=== PATIENT | female | born 1980 | race Hispanic/Latino ===

== ENCOUNTER 2021-01-24 15:59 | Emergency (ER) | payer SELFPAY | END 2021-01-24 19:17 | LOC: ED 15:59 ==

== ENCOUNTER 2021-04-21 19:39 | Emergency (ER) | payer SELFPAY ==
[2021-04-21 20:05] VITALS: BP 110/68
[2021-04-21 20:47] LABS: Basophils # (Auto) 0.1 K/mm3 (0.0-0.1); Eosinophils # (Auto) 0.2 K/mm3 (0.0-0.4); Eosinophils % (Auto) 2.1 % (0.0-4.3); Hematocrit 37.1 % (30.3-42.9); Hemoglobin 12.4 gm/dl (10.1-14.3); Lymphocytes # (Auto) 2.8 K/mm3 (1.2-5.4); Lymphocytes % (Auto) 32.2 % (13.4-35.0); Mean Corpuscular HGB Conc 34 % (30-34); Mean Corpuscular Volume 93 fl (79-97); Monocytes # (Auto) 0.7 K/mm3 (0.0-0.8); Monocytes % (Auto) 7.6 % (0.0-7.3); Platelet Count 342 K/mm3 (140-440); Red Blood Count 3.97 M/mm3 (3.65-5.03); Red Cell Distribution Width 14.1 % (13.2-15.2)
[2021-04-21 21:12] LABS: Alanine Aminotransferase 37 units/L (7-56); Albumin 3.9 g/dL (3.9-5); BUN/Creatinine Ratio 9; Blood Urea Nitrogen 7 mg/dL (7-17); Calcium 8.9 mg/dL (8.4-10.2); Hemolysis Index 16
[2021-04-21 21:31] LABS: Bilirubin,Urine NEG (Negative); Blood,Urine LG (Negative); Color,Urine Yellow (Yellow); Mucus,Urine FEW /HPF; Protein,Urine <15 mg/dL mg/dL (Negative); Urobilinogen,Urine < 2.0 mg/dL (<2.0)
--- NOTE | 2021-04-21 21:47 | Emergency Department Report ---
ED General Adult HPI - General Chief complaint: Dyspnea/Respdistress Stated complaint: SWELLING ALL OVER BREATHING HEAVY Time Seen by Provider: 04/21/21 20:11 Source: patient Mode of arrival: Ambulatory Limitations: No Limitations - History of Present Illness Initial comments: Patient is a 41-year-old female presents emergency room with complaints of ab dominal swelling and pain that began 2 days ago. Patient states that she is also noticed swelling to her ankles. Patient denies ever having this in the past. She states that her abdomen feels tight. She states that she is a nondrinker. Patient states that she is also been feeling shortness of breath. She denies any fever, nausea, vomiting, diarrhea, cough, calf pain, chest pain, pleuritic pain. She states that she has a smoker. Past medical history of hyperthyroidism, asthma, bipolar. Allergy to penicillin. She states that she is currently on her menstrual cycle. - Related Data Allergies Allergy/AdvReac Type Severity Reaction Status Date / Time Penicillins Allergy Anaphylaxis Verified 01/24/21 18:47 ED Review of Systems ROS: Stated complaint: SWELLING ALL OVER BREATHING HEAVY Other details as noted in HPI Comment: All other systems reviewed and negative ED Past Medical Hx - Past Medical History Previous Medical History?: Yes Hx Psychiatric Treatment: Yes (manic bipolar) Hx Asthma: Yes Additional medical history: hyperthyroid - Surgical History Past Surgical History?: Yes Additional Surgical History: TL ED Physical Exam - General Limitations: No Limitations General appearance: alert, in no apparent distress - Head Head exam: Present: atraumatic, normocephalic - Eye Eye exam: Present: normal appearance - ENT ENT exam: Present: mucous membranes moist - Respiratory Respiratory exam: Present: normal lung sounds bilaterally. Absent: respiratory distress, wheezes, rales, rhonchi, stridor, chest wall tenderness, accessory muscle use, decreased breath sounds, prolonged expiratory - Cardiovascular Cardiovascular Exam: Present: regular rate, normal rhythm, normal heart sounds. Absent: systolic murmur, diastolic murmur, rubs, gallop - GI/Abdominal GI/Abdominal exam: Present: soft, distended (mildly ), tenderness (mildly), no rmal bowel sounds. Absent: guarding, rebound, rigid - Extremities Exam Extremities exam: Present: other (trace non pitting edema to the bilateral ankles, no calf ttp ) - Neurological Exam Neurological exam: Present: alert, oriented X3 - Psychiatric Psychiatric exam: Present: normal affect, normal mood - Skin Skin exam: Present: warm, dry, intact ED Course Vital Signs 04/21/21 20:04 Temperature 98.8 F Pulse Rate 85 Respiratory 18 Rate Blood Pressure 110/68 [Right] O2 Sat by Pulse 99 Oximetry ED Medical Decision Making - Lab Data Result diagrams: 04/21/21 20:27 04/21/21 20:27 Lab Results 04/21/21 04/21/21 04/21/21 Range/Units 20:27 20:27 20:27 WBC 8.7 (4.5-11.0) K/mm3 RBC 3.97 (3.65-5.03) M/mm3 Hgb 12.4 (10.1-14.3) gm/dl Hct 37.1 (30.3-42.9) % MCV 93 (79-97) fl MCH 31 (28-32) pg MCHC 34 (30-34) % RDW 14.1 (13.2-15.2) % Plt Count 342 (140-440) K/mm3 Lymph % (Auto) 32.2 (13.4-35.0) % Moody % (Auto) 7.6 H (0.0-7.3) % Eos % (Auto) 2.1 (0.0-4.3) % Baso % (Auto) 1.0 (0.0-1.8) % Lymph # (Auto) 2.8 (1.2-5.4) K/mm3 Moody # (Auto) 0.7 (0.0-0.8) K/mm3 Eos # (Auto) 0.2 (0.0-0.4) K/mm3 Baso # (Auto) 0.1 (0.0-0.1) K/mm3 Seg Neutrophils % 57.1 (40.0-70.0) % Seg Neutrophils # 5.0 (1.8-7.7) K/mm3 Sodium 140 (137-145) mmol/L Potassium 4.1 (3.6-5.0) mmol/L Chloride 104.0 (98-107) mmol/L Carbon Dioxide 21 L (22-30) mmol/L Anion Gap 19 mmol/L BUN 7 (7-17) mg/dL Creatinine 0.8 (0.6-1.2) mg/dL Estimated GFR > 60 ml/min BUN/Creatinine Ratio 9 % Glucose 91 (65-100) mg/dL Calcium 8.9 (8.4-10.2) mg/dL Total Bilirubin < 0.20 (0.1-1.2) mg/dL AST 25 (5-40) units/L ALT 37 (7-56) units/L Alkaline Phosphatase 84 (35-129) units/L Troponin T < 0.010 (0.00-0.029) ng/mL NT-Pro-B Natriuret Pep 169.8 (0-450) pg/mL Total Protein 6.8 (6.3-8.2) g/dL Albumin 3.9 (3.9-5) g/dL Albumin/Globulin Ratio 1.3 % HCG, Qual Negative (Negative) Urine Color (Yellow) Urine Turbidity (Clear) Urine pH (5.0-7.0) Ur Specific [place] (1.003-1.030) Urine Protein (Negative) mg/dL Urine Glucose (UA) (Negative) mg/dL Urine Ketones (Negative) mg/dL Urine Blood (Negative) Urine Nitrite (Negative) Urine Bilirubin (Negative) Urine Urobilinogen (<2.0) mg/dL Ur Leukocyte Esterase (Negative) Urine WBC (Auto) (0.0-6.0) /HPF Urine RBC (Auto) (0.0-6.0) /HPF U Epithel Cells (Auto) (0-13.0) /HPF Urine Mucus /HPF Urine Yeast (Budding) /HPF 04/21/21 Range/Units Unknown WBC (4.5-11.0) K/mm3 RBC (3.65-5.03) M/mm3 Hgb (10.1-14.3) gm/dl Hct (30.3-42.9) % MCV (79-97) fl MCH (28-32) pg MCHC (30-34) % RDW (13.2-15.2) % Plt Count (140-440) K/mm3 Lymph % (Auto) (13.4-35.0) % Moody % (Auto) (0.0-7.3) % Eos % (Auto) (0.0-4.3) % Baso % (Auto) (0.0-1.8) % Lymph # (Auto) (1.2-5.4) K/mm3 Moody # (Auto) (0.0-0.8) K/mm3 Eos # (Auto) (0.0-0.4) K/mm3 Baso # (Auto) (0.0-0.1) K/mm3 Seg Neutrophils % (40.0-70.0) % Seg Neutrophils # (1.8-7.7) K/mm3 Sodium (137-145) mmol/L Potassium (3.6-5.0) mmol/L Chloride (98-107) mmol/L Carbon Dioxide (22-30) mmol/L Anion Gap mmol/L BUN (7-17) mg/dL Creatinine (0.6-1.2) mg/dL Estimated GFR ml/min BUN/Creatinine Ratio % Glucose (65-100) mg/dL Calcium (8.4-10.2) mg/dL Total Bilirubin (0.1-1.2) mg/dL AST (5-40) units/L ALT (7-56) units/L Alkaline Phosphatase (35-129) units/L Troponin T (0.00-0.029) ng/mL NT-Pro-B Natriuret Pep (0-450) pg/mL Total Protein (6.3-8.2) g/dL Albumin (3.9-5) g/dL Albumin/Globulin Ratio % HCG, Qual (Negative) Urine Color Yellow (Yellow) Urine Turbidity Slightly-cloudy (Clear) Urine pH 7.0 (5.0-7.0) Ur Specific [place] 1.013 (1.003-1.030) Urine Protein <15 mg/dl (Negative) mg/dL Urine Glucose (UA) Neg (Negative) mg/dL Urine Ketones Neg (Negative) mg/dL Urine Blood Lg (Negative) Urine Nitrite Neg (Negative) Urine Bilirubin Neg (Negative) Urine Urobilinogen < 2.0 (<2.0) mg/dL Ur Leukocyte Esterase Neg (Negative) Urine WBC (Auto) 24.0 H (0.0-6.0) /HPF Urine RBC (Auto) 159.0 (0.0-6.0) /HPF U Epithel Cells (Auto) 3.0 (0-13.0) /HPF Urine Mucus Few /HPF Urine Yeast (Budding) 1+ /HPF - EKG Data EKG shows normal: sinus rhythm, axis, intervals, QRS complexes, ST-T waves Rate: normal - Radiology Data Radiology results: report reviewed Ordering Physician: MICHAEL LOMELI Date of Service: 04/21/21 Procedure(s): XR chest routine 2V Accession Number(s): [id number] cc: MICHAEL LOMELI Fluoro Time In Minutes: CHEST 2 VIEWS INDICATION / CLINICAL INFORMATION: SOB. COMPARISON: None available. FINDINGS: SUPPORT DEVICES: None. HEART / MEDIASTINUM: No significant abnormality. LUNGS / PLEURA: No significant pulmonary or pleural abnormality. No pneumothorax. ADDITIONAL FINDINGS: No significant additional findings. IMPRESSION: 1. No acute findings. Signer Name: Tomi Montgomery DO Signed: 04/21/2021 10:47 PM Workstation Name: [id number] Transcribed By: GUILLE Dictated By: TOMI MONTGOMERY DO Electronically Authenticated By: TOMI MONTGOMERY DO Signed Date/Time: 04/21/212246 DD/ 46 TD/TT: Ordering Physician: MICHAEL LOMELI Date of Service: 04/21/21 Procedure(s): CT abdomen pelvis w con Accession Number(s): [id number] cc: MICHAEL LOMELI CT ABDOMEN AND PELVIS WITH CONTRAST INDICATION / CLINICAL INFORMATION: Abdominal pain with bloating and S.O.B.. TECHNIQUE: Axial CT images were obtained through the abdomen and pelvis after 100 cc of Omnipaque [address] scans at this location are performed using CT dose reduction for ALARA by means of automated exposure control. COMPARISON: None available. FINDINGS: LOWER CHEST: No significant abnormality. AORTA / ARTERIES: No significant abnormality. IVC / VEINS: No significant abnormality. LYMPH NODES: No significant adenopathy. COLON: No significant abnormality. APPENDIX: No significant abnormality. STOMACH / SMALL BOWEL: No significant abnormality. PERITONEUM: No free fluid. No free air. No fluid collection. LIVER: No significant abnormality. GALLBLADDER: No significant abnormality. BILE DUCTS: No significant abnormality. PANCREAS: No significant abnormality. SPLEEN: No significant abnormality. ADRENALS: No significant abnormality. RIGHT KIDNEY / URETER: No significant abnormality. LEFT KIDNEY / URETER: No significant abnormality. URINARY BLADDER: No significant abnormality. REPRODUCTIVE ORGANS: No significant abnormality. SKELETAL SYSTEM: No significant abnormality. ADDITIONAL FINDINGS: None. IMPRESSION: 1. No significant abnormality. Signer Name: Tomi Montgomery DO Signed: 04/21/2021 10:45 PM Workstation Name: [id number] Transcribed By: GUILLE Dictated By: TOMI OMNTGOMERY DO Electronically Authenticated By: TOMI MONTGOMERY DO Signed Date/Time: 04/21/212244 DD/ 41 TD/TT: - Medical Decision Making Patient is a 41-year-old female presents emergency room with complaints of abdominal swelling and pain that began 2 days ago. Patient states that she is also noticed swelling to her ankles. Patient denies ever having this in the past. She states that her abdomen feels tight. She states that she is a no ndrinker. Patient states that she is also been feeling shortness of breath. She denies any fever, nausea, vomiting, diarrhea, cough, calf pain, chest pain, pleuritic pain. She states that she has a smoker. Past medical history of hyperthyroidism, asthma, bipolar. Allergy to penicillin. She states that she is currently on her menstrual cycle. Vitals are normal. EKG is within normal limits. Labs are stable. Chest x-ray with no acute process. CT abdomen pelvis with IV contrast: 1. No significant abnormality. UA shows many red blood cells and small amount of white blood cells, this is likely due to patient's menstrual cycle, do not suspect UTI, she is not having urinary symptoms. I went to discharge patient and discuss results with patient, I was unable to find patient. EMT called patient multiple times with no answer. It appears patient has eloped from the emergency department. - Differential Diagnosis kidney dysfunction, liver dysfunction, mass, fibroids, CHF Critical care attestation.: If time is entered above; I have spent that time in minutes in the direct care of this critically ill patient, excluding procedure time. ED Disposition Clinical Impression: Abdominal bloating, SOB (shortness of breath) Abdominal pain Qualifiers: Abdominal location: generalized Qualified Code(s): R10.84 - Generalized abdominal pain Ankle swelling Qualifiers: Laterality: unspecified laterality Qualified Code(s): M25.473 - Effusion, un specified ankle Disposition: 07 LEFT AWOL/ELOPED Is pt being admited?: No Does the pt Need Aspirin: No Condition: Stable Instructions: Abdominal Bloating, Low-Sodium Eating Plan Additional Instructions: Please eat a low-sodium diet. May wear compression stockings while awake and walking around. Follow-up with a primary care doctor. Return to emergency room for any new or worsening symptoms. Referrals: JAYNE CAMPBELL MD [Staff Physician] - 3-[address] [facility] [Provider Group] - 3-5 Days Time of Disposition: 23:03 Print Language: SAO TOMEAN
--- NOTE | 2021-04-21 22:50 | Cat Scan Report ---
CT ABDOMEN AND PELVIS WITH CONTRAST INDICATION / CLINICAL INFORMATION: Abdominal pain with bloating and S.O.B.. TECHNIQUE: Axial CT images were obtained through the abdomen and pelvis after 100 cc of Omnipaque [address] scans at this location are performed using CT dose reduction for ALARA by means of automated exposure control. COMPARISON: None available. FINDINGS: LOWER CHEST: No significant abnormality. AORTA / ARTERIES: No significant abnormality. IVC / VEINS: No significant abnormality. LYMPH NODES: No significant adenopathy. COLON: No significant abnormality. APPENDIX: No significant abnormality. STOMACH / SMALL BOWEL: No significant abnormality. PERITONEUM: No free fluid. No free air. No fluid collection. LIVER: No significant abnormality. GALLBLADDER: No significant abnormality. BILE DUCTS: No significant abnormality. PANCREAS: No significant abnormality. SPLEEN: No significant abnormality. ADRENALS: No significant abnormality. RIGHT KIDNEY / URETER: No significant abnormality. LEFT KIDNEY / URETER: No significant abnormality. URINARY BLADDER: No significant abnormality. REPRODUCTIVE ORGANS: No significant abnormality. SKELETAL SYSTEM: No significant abnormality. ADDITIONAL FINDINGS: None. IMPRESSION: 1. No significant abnormality. Signer Name: Tomi Montgomery DO Signed: 04/21/2021 10:45 PM Workstation Name: [id number]
--- NOTE | 2021-04-21 22:52 | XRay Report ---
CHEST 2 VIEWS INDICATION / CLINICAL INFORMATION: SOB. COMPARISON: None available. FINDINGS: SUPPORT DEVICES: None. HEART / MEDIASTINUM: No significant abnormality. LUNGS / PLEURA: No significant pulmonary or pleural abnormality. No pneumothorax. ADDITIONAL FINDINGS: No significant additional findings. IMPRESSION: 1. No acute findings. Signer Name: Tomi Montgomery DO Signed: 04/21/2021 10:47 PM Workstation Name: [id number]
--- NOTE | 2021-04-22 13:07 | Electrocardiograph Report ---
[facility] Test Date: 2021-04-21 Test Time: 20:54:15 Pat Name: KAVYA SMALLWOOD Department: Room: Gender: F [employer]: : 1980 Requested By: SENAIT JONES Order Number: [id number] Reading MD: Lianet Desai Measurements Intervals [place] Rate: 74 P: 61 GA: 133 QRS: 90 QRSD: 90 T: 47 QT: 391 QTc: 435 Interpretive Statements Sinus rhythm No previous ECG available for comparison Electronically Signed On 04-22-2021 13:07:01 EST by Lianet Desai
== END 2021-04-21 23:30 | disposition left against medical advice (07) ==
LOC: ED 19:39
DX: R14.0 Abdominal distension (gaseous) (principal); R10.84 Generalized abdominal pain; M25.472 Effusion, left ankle; M25.471 Effusion, right ankle; J45.909 Unspecified asthma, uncomplicated; E05.90 Thyrotoxicosis, unspecified without thyrotoxic crisis or storm
CPT/HCPCS: 36415; 71046; 74177; 80053; 81001; 83880; 84484; 84703; 85025; 87086; 93005; 99284; Q9967

== ENCOUNTER 2021-05-02 11:50 | Emergency (ER) | payer SELFPAY ==
[2021-05-02 11:58] VITALS: BP 105/59
[2021-05-02] MEDS ORDERED: IBUPROFEN 600 MG TAB PO ONE (12:25)
[2021-05-02] MEDS ORDERED: predniSONE 50 MG TAB PO ONE (12:25)
--- NOTE | 2021-05-02 12:26 | Emergency Department Report ---
ED General Adult HPI - General Chief complaint: Dyspnea/Respdistress Stated complaint: swelling/difficulty breathing Time Seen by Provider: 05/02/21 12:04 Source: patient, RN notes reviewed, old records reviewed Mode of arrival: Ambulatory Limitations: No Limitations - History of Present Illness Initial comments: 41-year-old female with a past medical history of asthma and tobacco abuse presents to the ER today with complaints that she is swelling all over. Patient states that for the past 1 week she feels like she is swelling all over and she states that her clothes feels tight. She did come to the ER 10 days ago for her symptoms, during which she had a complete work-up including labs, CT abdomen pelvis, chest x-ray and a troponin. Patient apparently eloped left prior to completion of her treatment. Patient states that she could not wait because her ride was about to leave. She states that since being seen 10 days ago she feels like the swelling is about the same, not any worse. She does admit that she had a "bad cough" for the past 4 days with associated wheezing, chest tightness and shortness of breath. She does not have an inhaler nor does she have a nebulizer machine. She denies any URI symptoms, fever or chills. She also complains of low back pain since she started having swelling about a week ago. He states that the pa in is worse with certain movements. She denies any injury. She denies any GI symptoms, or UTI symptoms. She states that the last time she was admitted for asthma was about 2 years ago. She is not currently on any control, she denies history of PE or any risk factors for PE or DVT. She denies any history of heart disease. Complaint: Diffuse swelling/cough/SOB -: Gradual - Related Data Allergies Allergy/AdvReac Type Severity Reaction Status Date / Time Penicillins Allergy Anaphylaxis Verified 01/24/21 18:47 ED Review of Systems ROS: Stated complaint: swelling/difficulty breathing Other details as noted in HPI Comment: All other systems reviewed and negative Constitutional: denies: chills, fever Eyes: denies: eye pain, eye discharge, vision change ENT: denies: ear pain, throat pain, dental pain, hearing loss, epistaxis, congestion Respiratory: cough, shortness of breath. denies: SOB with exertion, SOB at rest, stridor, wheezing Cardiovascular: other (Chest tightness). denies: chest pain, palpitations Gastrointestinal: denies: abdominal pain, nausea, diarrhea, constipation, hematemesis, hematochezia Genitourinary: denies: urgency, dysuria, frequency, hematuria, discharge, abnormal menses, dyspareunia Musculoskeletal: denies: back pain, joint swelling, arthralgia ED Past Medical Hx - Past Medical History Hx Psychiatric Treatment: Yes (manic bipolar) Hx Asthma: Yes Additional medical history: hyperthyroid - Surgical History Additional Surgical History: TL ED Physical Exam - General Limitations: No Limitations General appearance: alert, in no apparent distress - Head Head exam: Present: atraumatic, normocephalic, normal inspection - Eye Eye exam: Present: normal appearance, PERRL, EOMI Pupils: Present: normal accommodation - ENT ENT exam: Present: normal exam, mucous membranes moist, TM's normal bilaterally - Neck Neck exam: Present: normal inspection, full ROM - Respiratory Respiratory exam: Present: wheezes. Absent: respiratory distress - Cardiovascular Cardiovascular Exam: Present: regular rate, normal rhythm, normal heart sounds - GI/Abdominal GI/Abdominal exam: Present: soft. Absent: distended, tenderness, guarding, rebound - Extremities Exam Extremities exam: Present: full ROM, normal capillary refill, other (Very mild soft swelling noted to bilateral lower extremity. No obvious swelling noted to the rest of her body.). Absent: calf tenderness - Back Exam Back exam: Present: tenderness (Lower lumbar area.) - Neurological Exam Neurological exam: Present: alert, oriented X3, CN II-XII intact, normal gait - Psychiatric Psychiatric exam: Present: normal affect, normal mood - Skin Skin exam: Present: intact ED Course Vital Signs 05/02/21 11:57 Temperature 98.3 F Pulse Rate 94 H Respiratory 20 Rate Blood Pressure 105/59 O2 Sat by Pulse 100 Oximetry ED Medical Decision Making - Medical Decision Making After several calls by x-ray tech, and nursing staff for UA, xrays, breathing treatments and meds, patient was nowhere to be found. Patient apparently eloped without notifying myself or staff. Critical care attestation.: If time is entered above; I have spent that time in minutes in the direct care of this critically ill patient, excluding procedure time. ED Disposition Clinical Impression: Asthma, Peripheral edema Disposition: LEFT AWOL/ELOPED Is pt being admited?: No Does the pt Need Aspirin: No Condition: Stable Instructions: Asthma (ED)
== END 2021-05-02 13:10 | disposition left against medical advice (07) ==
LOC: ED 11:50
DX: R60.9 Edema, unspecified (principal); J45.909 Unspecified asthma, uncomplicated; F31.9 Bipolar disorder, unspecified; E05.90 Thyrotoxicosis, unspecified without thyrotoxic crisis or storm
CPT/HCPCS: 99281; J7512